=== PATIENT | female | born 1945 | race American Indian/Alaskan Native ===

== ENCOUNTER 2021-12-16 19:33 | Emergency (ER) | payer BC, OTHER ==
[~2021-12-16] VITALS: Ht 144.8 cm; Wt 45.4 kg
[2021-12-16 20:21] VITALS: BP 166/75
--- NOTE | 2021-12-16 20:28 | NUR ---
TO LOBBY FOLLOWING TRIAGE
--- NOTE | 2021-12-17 00:18 | NUR ---
Dr. La examining patient.
[2021-12-17] MEDS ORDERED: PRED20TA5 PO (00:22)
[2021-12-17] MEDS ORDERED: ROBAC PO (00:22)
[2021-12-17] MEDS ORDERED: AZIT250T4 PO (00:22)
--- NOTE | 2021-12-17 00:27 | NUR ---
Respiratory Therapist at bedside for respiratory intervention.
[2021-12-17] MEDS: ALBUTEROL SULFATE/IPRATROPIU 3 ML SOL IH ONE (00:33)
[2021-12-17 01:07] VITALS: BP 145/66
--- NOTE | 2021-12-17 01:07 | NUR ---
Patient discharged with v/s stable. Written and verbal after care instructions given and explained for Pulmonary Fibrosis and cough. Patient alert, oriented and verbalized understanding of instructions. Ambulatory with steady gait. All questions addressed prior to discharge. ID band removed. Patient advised to follow up with PMD. Rx of Zithromax, Predisone and Guaifenesin-Codeine Syrup given. Patient educated on indication of medication including possible reaction and side effects. Opportunity to ask questions provided and answered.
== END 2021-12-17 01:07 | disposition home or self-care (01) ==
LOC: MED 19:33
DX: J84.10 Pulmonary fibrosis, unspecified (principal); J20.9 Acute bronchitis, unspecified; Z98.890 Other specified postprocedural states
CPT/HCPCS: 71045; 94640; 99283